=== PATIENT | female | born 1960 | race African-American/Black ===

== ENCOUNTER → 2016-12-22 | Outpatient (CLI) | payer MEDICAID | LOC: FIMAGING 17:04 | PROVIDERS: ATTEND Physician Assistant Surgical | DX: M54.2 Cervicalgia (principal) ==

== ENCOUNTER → 2017-01-22 | Outpatient (CLI) | payer MEDICAID | LOC: FIMAGING 17:41 | PROVIDERS: ATTEND Physician Assistant Surgical | DX: M50.922 Unspecified cervical disc disorder at C5-C6 level (principal) ==

== ENCOUNTER → 2017-05-20 | Outpatient (CLI) | payer MEDICAID | LOC: FIMAGING 16:10 | PROVIDERS: ATTEND Physician Assistant Surgical | DX: Z09 Encounter for follow-up examination after completed treatment for conditions other than malignant neoplasm (principal); Z98.1 Arthrodesis status ==

== ENCOUNTER → 2017-05-21 | Outpatient (CLI) | payer MEDICAID | LOC: FIMAGING 18:30 | PROVIDERS: ATTEND Family Medicine | DX: M25.552 Pain in left hip (principal); M25.752 Osteophyte, left hip; M54.42 Lumbago with sciatica, left side ==

== ENCOUNTER → 2017-08-11 | Outpatient (CLI) | payer MEDICAID | LOC: FIMAGING 17:03 | PROVIDERS: ATTEND Physician Assistant Surgical | DX: Z09 Encounter for follow-up examination after completed treatment for conditions other than malignant neoplasm (principal); Z98.1 Arthrodesis status ==

== ENCOUNTER 2017-09-05 14:02 | Emergency (ER) | payer MEDICAID ==
--- NOTE | 2017-09-05 14:55 | EDPHY ---
H & P Stated Complaint: c/o R 3rd toe pain after stepping incorrectly in her boots yesterday Source: Patient Exam Limitations: No limitations - Personal History Tetanus Vaccine Date: pt. cannot provide information at this time. - Medical/Surgical History Hx Asthma: No Hx Chronic Respiratory Disease: Yes Hx Diabetes: No Hx Cardiac Disease: No Hx Renal Disease: No Hx Cirrhosis: No Hx Alcoholism: No Hx HIV/AIDS: No Hx Splenectomy or Spleen Trauma: No Other PMH: DEPRESSION, ANXIETY, APPY, CHRONIC BROCHITITS, PNA. - Social History Smoking Status: Never smoked Time Seen by Provider: 09/05/17 14:54 HPI/ROS: HPI: This is a 56-year-old female who presents with Chief Complaint: c/o R 3rd toe pain after stepping incorrectly in her boots yesterday Location: Right 3rd toe Quality: Injury Duration: Yesterday evening Signs and Symptoms: + bleeding 1st but none currently, no radiation, no numbness, no weakness, no tingling, no incontinence, no decreased range of motion, + swelling, + pain Timing: Sudden Severity: [id number] Context: Patient reports that she was trying to get into her for under yesterday evening before the snow and accidentally tripped and hit her right middle toe underneath the car. She reports that her fake and real toenail were pulled partially pulled off. She felt immediate constant pain, that worsens with movement of the nail accompanied by moderate bleeding that has since stopped since last night with direct pressure. She denies being on any blood thinners. No paresthesias/skin color changes/drainage. She has tried no over- the-counter medications and has not applied ice. She is ambulatory without deficits. She applied a plastic bag over her entire right foot. No history of diabetes mellitus. Modifying Factors: None Comment: ROS: see HPI Constitutional: No fever, no chills, no weight loss Eyes: No blurred vision Respiratory: No shortness of breath, no cough Cardiovascular: No chest pain Gastrointestinal: No nausea, no vomiting no diarrhea Genitourinary: No dysuria Extremities: No myalgias Neurologic: No weakness, no numbness Skin: No rashes Hematologic: No bruising, no bleeding MEDICAL/SURGICAL/SOCIAL HISTORY: Medical history: DEPRESSION, ANXIETY, APPY, CHRONIC BROCHITITS, PNA. Surgical history: Denies Social history: Unemployed CONSTITUTIONAL: Anxious adult female, awake and alert, no obvious distress HEENT: Atraumatic and normocephalic, PERRL, EOMI. Tympanic membranes clear. Oropharynx clear, no exudate and moist pink mucosa. Airway patent. No lymphadenopathy. No meningismus. Cardiovascular: Normal S1/S2, regular rate, regular rhythm, without murmur rub or gallop. PULMONARY/CHEST: Symmetrical and nontender. Clear to auscultation bilaterally. Good air movement. No accessory muscle usage. ABDOMEN: Soft, nondistended, nontender, no rebound, no guarding, no peritoneal signs, no masses or organomegaly. No CVAT. EXTREMITIES: 2/2 DP and PT pulses, pedal strength 5/5, right middle toe shows partially avulsed distal 1/3 portion of real and fake nail; no active bleeding. DI P/PIP/MTP flexion extension and light touch sensation intact. Mild swelling noted. no deformities, no clubbing, no cyanosis or edema. NEUROLOGICAL: no focal neuro deficits. GCS 15. SKIN: Warm and dry, no erythema. no rash. Good capillary refill. (Lynne Clements) Constitutional: Initial Vital Signs Temperature (C) 36.9 C 09/05/17 14:11 Heart Rate 94 09/05/17 14:11 Respiratory Rate 16 09/05/17 14:11 Blood Pressure 137/81 H 09/05/17 14:11 O2 Sat (%) 94 09/05/17 14:11 O2 Delivery Mode Room Air Allergies/Adverse Reactions: penicillin V potassium [From Pen-Vee K] Allergy (Severe, Verified 09/05/17 14:15 ) "GET KNOCKED DOWN" seafood Allergy (Uncoded 09/05/17 14:15) Home Medications: Medication Instructions Recorded CLONAZEPAM 09/30/15 Lamictal 09/30/15 Latuda 09/05/17 Neomycn/Bacitrc/Polymyx/Pramox 1 savanah TP DAILY #30 g 09/05/17 [Neosporin + Pain Relief Oint] Medical Decision Making Procedures: Procedure: Splint placement. A right orthotic shoe was applied by the Emergency Room critical power install technician. After application of the splint I returned and re-examined the patient. The splint was adequately immobilizing the joint and distal to the splint the patient's circulation and sensation was intact. (Lynne Clements) ED Course/Re-evaluation: X-ray and wound care provided. No signs of neurovascular compromise/tenting of skin/compartment syndrome/ extremities and joints examined above and below area of concern and are neurovascularly intact. X-ray my read shows no signs of fracture/dislocation Fake and real nail is only 1/3 partially avulsed; clean with mild soap and water ; bacitracin application and jennifer-taped. Will leave partially avulsed nail on as protection for nail bed. This patient was seen under the supervision of my secondary supervising physician. I evaluated care for this patient independently. Discussed this patient with Dr. Pagan who did not see the patient. (Lynne Clements) Differential Diagnosis: Differential diagnosis includes but is not limited to toenail avulsion, phalanx fracture, contusion, nerve injury. (Lynne Clements) Other Provider: The patient was evaluated and managed by the [facility]. My co-signature indicates that I have reviewed this chart and I agree with the findings and plan of care as documented. I am the secondary supervising physician. (Tori Pagan) Departure - Departure Disposition: Home, Routine, Self-Care Clinical Impression: Nail avulsion of toe Condition: Good Instructions: Nail Avulsion (ED) Additional Instructions: Take Tylenol 650 mg every 4 hours and/or Ibuprofen 600 mg every 8 hours with food as needed for pain. Apply topical antibiotic ointment to the nail, apply clean sterile dressing daily. Avoid wearing tight-fitting shoes until nail fully healed. Apply ice for 30 minutes at a time; 2-3 times per day for the next 1-2 days. Follow up with PCP in 5-7 days if symptoms persist or worsen at which time they will evaluate and recommend with you if conservative management versus nail removal is indicated. The x-rays obtained in the emergency department today demonstrate no evidence of an obvious fracture. Sometimes fractures are not obvious on the initial set of x-rays performed in the ED. For this reason, you should have repeat x-rays performed in 7-10 days if you are having any pain exclude the possibility of an occult fracture. Referrals: Lady Mcclellan MD [Primary Care Provider] - As per Instructions Prescriptions: Neomycn/Bacitrc/Polymyx/Pramox [Neosporin + Pain Relief Oint] 1 savanah TP DAILY # 30 g
[2017-09-05] MEDS ORDERED: BACITRACIN OINTMENT 1 PACKET TP ONE (16:32)
[2017-09-05 16:46] VITALS: BP 121/81; PULSE 93; RESP 18; TEMP 98.6; O2SAT 93
== END 2017-09-05 16:46 | disposition home or self-care (01) ==
DX: S91.204A Unspecified open wound of right lesser toe(s) with damage to nail, initial encounter (principal); W18.40XA Slipping, tripping and stumbling without falling, unspecified, initial encounter

== ENCOUNTER → 2017-10-08 | Outpatient (CLI) | payer MEDICAID | LOC: FIMAGING 13:40 | PROVIDERS: ATTEND Family Medicine | DX: Z12.31 Encounter for screening mammogram for malignant neoplasm of breast (principal) ==

== ENCOUNTER → 2017-11-25 | Outpatient (CLI) | payer MEDICAID | LOC: FIMAGING 07:28 | PROVIDERS: ATTEND Internal Medicine | DX: R74.0 Nonspecific elevation of levels of transaminase and lactic acid dehydrogenase [LDH] (principal) ==

== ENCOUNTER 2018-01-11 20:49 | Emergency (ER) | payer MEDICAID ==
--- NOTE | 2018-01-11 21:31 | EDPHY ---
H & P Stated Complaint: FELL FROM STANDING TWISTED R ANKLE, HEAD INJ/-LOC Time Seen by Provider: 01/11/18 21:19 HPI/ROS: CHIEF COMPLAINT: Headache and right ankle pain after mechanical fall HISTORY OF PRESENT ILLNESS: The patient presents to the ED with complaints of headache and right ankle pain after she sustained a mechanical fall earlier today. The patient reportedly tripped and fell forward. She landed on her forehead. She states that since the fall 1 o'clock she has been ambulatory. She has had a worsening headache today. She also complains of low back pain. The patient denies chest pain, difficulty breathing, antecedent chest pain or palpitations. REVIEW OF SYSTEMS: A comprehensive 10 point review of systems is otherwise negative aside from elements mentioned in the history of present illness. Source: Patient - Personal History Current Tetanus Diphtheria and Acellular Pertussis (TDAP): Yes Tetanus Vaccine Date: pt. cannot provide information at this time. - Medical/Surgical History Hx Asthma: No Hx Chronic Respiratory Disease: Yes Hx Diabetes: No Hx Cardiac Disease: No Hx Renal Disease: No Hx Cirrhosis: No Hx Alcoholism: No Hx HIV/AIDS: No Hx Splenectomy or Spleen Trauma: No Other PMH: DEPRESSION, ANXIETY, APPY, CHRONIC BROCHITITS, L SHOULDER SEPARATION - Social History Smoking Status: Never smoked - Physical Exam Exam: General Appearance: Alert, no distress Head: Atraumatic Eyes: Pupils equal, round, reactive ENT, Mouth: No hemotympanum, no oral trauma Neck: Nontender, trachea midline Respiratory: No chest wall tender, subcutaneous air, lungs clear bilaterally Cardiovascular: Regular rate and rhythm Abdomen: Abdomen is soft and nontender, pelvis stable Skin: No lacerations, No abrasion Back: No midline T/L/S pain Extremities: Tenderness to palpation right lateral malleolus Neurological: A&Ox3, normal motor function, normal sensory exam Constitutional: Initial Vital Signs Temperature (C) 36.6 C 01/11/18 20:56 Heart Rate 84 01/11/18 20:56 Respiratory Rate 16 01/11/18 20:56 Blood Pressure 145/93 H 01/11/18 20:56 O2 Sat (%) 98 01/11/18 20:56 O2 Delivery Mode Room Air Allergies/Adverse Reactions: penicillin V potassium [From Pen-Vee K] Allergy (Severe, Verified 12/24/17 14:15 ) "GET KNOCKED DOWN" seafood Allergy (Uncoded 09/05/17 14:15) Home Medications: Medication Instructions Recorded CLONAZEPAM 09/30/15 Lamictal 09/30/15 Latuda 09/05/17 Neomycn/Bacitrc/Polymyx/Pramox 1 savanah TP DAILY #30 g 09/05/17 [Neosporin + Pain Relief Oint] Medical Decision Making - Diagnostics Imaging Results: Imaging Impressions Head CT 01/11/18 21:31 Impression: Equivocal right small superficial, cortical hemorrhagic contusion vs beam hardening artifact. Otherwise normal. Results called and discussed with Rashaad Espinal, at 01/11/2018 22:00 General information for patients regarding this examination can be found at [email or web address]. If you have questions or comments about this report, please contact me at (hospital) or [phone] (cell). Ankle X-Ray 01/11/18 21:32 Impression: Possible short lateral cortical avulsion vs soft tissue artifact. ED Course/Re-evaluation: The patient presents to the ED after mechanical fall 1:00 p.m. today. The patient complains of a headache and right ankle pain. She has no external signs of head trauma. The patient also complains of right ankle pain however has been ambulatory. She is not anticoagulated. The patient was taken for CT scan which demonstrates no evidence of an obvious epidural or subdural. She does have a beam hardening artifact which is felt to be more likely than a small area of hemorrhage. I re-evaluated the patient at 10:20 p.m.. There is no evidence of a significant fracture or intracranial hemorrhage. I do feel the patient can be discharged from the emergency department. She has been asked to follow up with her primary care provider. She is discharged home with customary aftercare instructions and return precautions. Differential Diagnosis: Differential diagnosis considered includes intracranial hemorrhage, skull fracture, ankle fracture, cervical spine injury, intra-abdominal injury Departure - Departure Disposition: Home, Routine, Self-Care Clinical Impression: Scalp contusion, Ankle sprain, Back strain Condition: Good Instructions: Low Back Strain (ED) Additional Instructions: 1. Tylenol and ibuprofen as needed for pain. 2. Return to the ED for markedly worsening headache, the development of new symptoms, worsening symptoms or other concerns. 3. Please schedule a follow-up appointment with your primary care provider as needed. Referrals: Lady Mcclellan MD [Primary Care Provider] - As per Instructions
[2018-01-11] MEDS ORDERED: ACETAMINOPHEN 325 MG TAB PO ONE (23:07)
[2018-01-11 23:10] VITALS: BP 137/99
== END 2018-01-11 23:12 | disposition home or self-care (01) ==
DX: S00.03XA Contusion of scalp, initial encounter (principal); S93.401A Sprain of unspecified ligament of right ankle, initial encounter; S39.012A Strain of muscle, fascia and tendon of lower back, initial encounter; W01.0XXA Fall on same level from slipping, tripping and stumbling without subsequent striking against object, initial encounter

== ENCOUNTER → 2018-01-25 | Outpatient (CLI) | payer MEDICAID | LOC: FIMAGING 08:59 | PROVIDERS: ATTEND Physician Assistant Surgical | DX: Z98.1 Arthrodesis status (principal) ==

== ENCOUNTER → 2018-02-04 | Outpatient (CLI) | payer MEDICAID | LOC: FIMAGING 08:29 | PROVIDERS: ATTEND Family Medicine | DX: M76.821 Posterior tibial tendinitis, right leg (principal); M25.531 Pain in right wrist ==

== ENCOUNTER → 2018-11-07 | Outpatient (CLI) | payer MEDICAID | LOC: FIMAGING 16:01 | PROVIDERS: ATTEND Family Medicine | DX: J40 Bronchitis, not specified as acute or chronic (principal); I51.7 Cardiomegaly; I77.1 Stricture of artery ==

== ENCOUNTER → 2019-03-08 | Outpatient (CLI) | payer MEDICAID | LOC: FIMAGING 15:04 ==